=== PATIENT | female | born 1975 | race Caucasian/White ===

== ENCOUNTER 2019-01-04 11:54 | Emergency (ER) | payer OTHER ==
[~2019-01-04] VITALS: Ht 162.6 cm; Wt 111.1 kg
[2019-01-04 12:05] VITALS: BP 105/61
[2019-01-04] MEDS ORDERED: TETANUS-DIPTH-ACEL PERTUSSIS 0.5ML SYRG IM ONE (13:00)
[2019-01-04] MEDS ORDERED: cefTRIAXone SOD 1,000 MG VL IM ONE (13:00)
[2019-01-04] MEDS ORDERED: IBUPROFEN 800 MG TAB PO ONE (13:30)
== END 2019-01-04 16:54 | disposition home or self-care (01) ==
LOC: EDBD 11:54 → ER 12:01
DX: S61.214A Laceration without foreign body of right ring finger without damage to nail, initial encounter (principal); S62.644A Nondisplaced fracture of proximal phalanx of right ring finger, initial encounter for closed fracture; V49.49XA Driver injured in collision with other motor vehicles in traffic accident, initial encounter; Y93.89 Activity, other specified; Y99.8 Other external cause status; Y92.410 Unspecified street and highway as the place of occurrence of the external cause
CPT/HCPCS: 12002; 29125; 73130; 90471; 90715; 96372; 99283; J0696